=== PATIENT | female | born 1980 | race Caucasian/White ===

== ENCOUNTER 2019-03-03 20:46 | Emergency (ER) | payer MEDICAID, OTHER ==
[~2019-03-03 20:46] MED LIST: SUCCINYLCHOLINE CHLORIDE INJ 200 MG/10 ML VIAL ONE
--- NOTE | 2019-03-03 21:01 | ER Document Report ---
ED Medical Screen (RME) - General Chief Complaint: Foreign Body Stated Complaint: FOREIGN BODY IN THROAT Time Seen by Provider: 03/03/19 20:58 Mode of Arrival: Ambulatory Information source: Patient Notes: 38-year-old female presented to ED for complaint of choking on a piece of chicken. She states she cannot even swallow her spit. She is able to answer questions verbally. Respirations are regular and unlabored. 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 I have greeted and performed a rapid initial assessment of this patient. A comprehensive ED assessment and evaluation of the patient, analysis of test results and completion of medical decision making process will be conducted by an additional ED providers. - Related Data Allergies/Adverse Reactions: morphine Allergy (Verified 03/03/19 20:53) promethazine [From Phenergan] Allergy (Verified 03/03/19 20:53) Sulfa (Sulfonamide Antibiotics) Allergy (Verified 03/03/19 20:53) Physical Exam - Vital signs Vitals: Temp Pulse Resp BP Pulse Ox 98.0 F 93 21 H 145/85 H 100 03/03/19 20:54 03/03/19 20:54 03/03/19 20:54 03/03/19 20:54 03/03/19 20:54 Course - Vital Signs Vital signs: Temp Pulse Resp BP Pulse Ox 98.0 F 93 21 H 145/85 H 100 03/03/19 20:54 03/03/19 20:54 03/03/19 20:54 03/03/19 20:54 03/03/19 20:54
[2019-03-03] MEDS ORDERED: DEXAMETHASONE SOD PHOS INJ 10 MG/1 ML VIAL IV ONE (21:05)
[2019-03-03] MEDS ORDERED: KETOROLAC TROMETHAMINE INJ/PF 30 MG/1 ML SDV IV ONE (21:05)
[2019-03-03] MEDS ORDERED: NORMAL SALINE 1000 ML 1,000 ML IV ONE (21:51)
[2019-03-03] MEDS ORDERED: NITROGLYCERIN 0.4 MG/TAB 25 TAB/BOTTLE SL ONE (21:51)
--- NOTE | 2019-03-03 21:53 | ER Document Report ---
ED General - General Chief Complaint: Difficulty Swallowing Stated Complaint: FOREIGN BODY IN THROAT Time Seen by Provider: 03/03/19 20:58 Mode of Arrival: Ambulatory Notes: 38-year-old female with past medical history of Hylton's esophagus presents with foreign body in throat. Was eating chicken and felt like chicken got stuck approximately 1 hour prior to arrival. Patient is currently spitting up. Patient has had to have esophageal dilatation done twice in the past, most recent was 3 years ago. Patient has also had multiple endoscopies to remove foreign bodies from esophagus. - Related Data Allergies/Adverse Reactions: morphine Allergy (Verified 03/03/19 20:53) promethazine [From Phenergan] Allergy (Verified 03/03/19 20:53) Sulfa (Sulfonamide Antibiotics) Allergy (Verified 03/03/19 20:53) Past Medical History - General Information source: Patient - Social History Smoking Status: Never Smoker Family History: None Patient has suicidal ideation: No Patient has homicidal ideation: No Review of Systems - Review of Systems Notes: Constitutional: Negative for fever. HENT: Positive for dysphasia and foreign bodies sensation. Negative for sore throat. Eyes: Negative for visual changes. Cardiovascular: Negative for chest pain. Respiratory: Negative for shortness of breath. Gastrointestinal: Negative for abdominal pain, vomiting or diarrhea. Genitourinary: Negative for dysuria. Musculoskeletal: Negative for back pain. Skin: Negative for rash. Neurological: Negative for headaches, weakness or numbness. 10 point ROS negative except as marked above and in HPI. Physical Exam - Vital signs Vitals: Temp Pulse Resp BP Pulse Ox 98.0 F 93 21 H 145/85 H 100 03/03/19 20:54 03/03/19 20:54 03/03/19 20:54 03/03/19 20:54 03/03/19 20:54 - Notes Notes: GENERAL: Well-appearing, well-nourished, appears uncomfortable HEAD: Atraumatic, normocephalic. EYES: Extraocular movements intact, sclera anicteric, conjunctiva are normal. ENT: TMs normal, nares patent, oropharynx clear without exudates. Pt spitting up. Moist mucous membranes. NECK: Normal range of motion, supple without lymphadenopathy or JVD. No stridor. LUNGS: Breath sounds clear to auscultation bilaterally and equal. No wheezes rales or rhonchi. HEART: Regular rate and rhythm without murmurs, rubs or gallops. ABDOMEN: Soft, nontender, normoactive bowel sounds. No guarding, no rebound. No masses appreciated. EXTREMITIES: Normal range of motion, no pitting or edema. No clubbing or cyanosis. NEUROLOGICAL: Cranial nerves II through XII grossly intact. Normal speech, normal gait. PSYCH: Normal mood, normal affect. SKIN: Warm, Dry, normal turgor, no rashes or lesions noted. Course - Re-evaluation Re-evalutation: 03/03/19 21:[address] Mcdonald who recommended speaking with surgery. Spoke with surgeon, Dr. De Los Santos, who recommended nitroglycerin 0.4 mg SL and PO challenge in 10-15 minutes. States if no improved in 30 minutes to call him back. 03/03/19 21:55 Dr. Mcdonald assessed pt. States to give nitroglycerin 0.4 mg SL with IV fluids and zofran 4 mg IV prior to glucagon 1 mg IV. 03/03/19 22:20 Dr. De Los Santos at bedside to evaluate pt. 03/03/19 22:41 Dr. De Los Santos to take pt to OR for scope - Vital Signs Vital signs: Temp Pulse Resp BP Pulse Ox 98.0 F 93 21 H 145/85 H 100 03/03/19 20:54 03/03/19 20:54 03/03/19 20:54 03/03/19 20:54 03/03/19 20:54 Discharge - Discharge Clinical Impression: History of Hylton's esophagus Foreign body in throat Qualifiers: Encounter type: initial encounter Qualified Code(s): T17.208A - Unspecified foreign body in pharynx causing other injury, initial encounter Condition: Stable Disposition: ADMITTED INPATIENT Admitting Provider: Surgicalist - [facility] Admitted: OR
--- NOTE | 2019-03-03 21:53 | RADIOLOGY REPORT (SQ) ---
EXAM: XR NECK SOFT TISSUE CLINICAL INDICATION: 30-year-old female status post choking. Technologist note: Feels like food stuck above sternum. TECHNIQUE: Two-view, PA and lateral projections of the neck soft tissues were obtained. COMPARISON: None. FINDINGS: The prevertebral soft tissues are within normal limits. The airway is patent. There is gaseous distention of the visualized proximal esophagus, terminating off the [id number] of the examination. The possibility of distal obstruction cannot be excluded. Lungs are clear without focal opacity, pneumothorax or pleural effusions. The visualized bones are reveal grade 1 anterolisthesis of C4 relative to C5 of uncertain etiology. IMPRESSION: 1. There is gaseous distention of the visualized proximal esophagus, terminating off the [id number] of the examination. The possibility of distal obstruction cannot be excluded. 2. Grade 1 anterolisthesis of C4 relative to C5 uncertain etiology. There is otherwise straightening of the cervical spine.
[2019-03-03] MEDS ORDERED: ONDANSETRON HCL INJ/PF 4 MG/2 ML SDV IV ONE (21:55)
[2019-03-03] MEDS ORDERED: GLUCAGON,HUMAN RECOMB 1 MG INJ IV ONE (21:55)
--- NOTE | 2019-03-03 22:43 | PDOC H&P ---
History of Present Illness Patient complains of: Food bolus stuck in the upper esophagus with dysphagia History of Present Illness: DOC GEORGE is a 38 year old female with a history of severe GERD, Hylton's esophagus, endoscopic retrieval of impacted esophageal food bolus x3, and esophageal dilatation of stricture x2. The last endoscopic esophageal dilatation was done 3 years ago. The patient reports that she was having dinner and she ate a bite of food (chicken). Soon after. she felt that she was unable to swallow any additional food and she has been unable to handle her own secretions or drinking any fluids since then. She denies chest pain, she reports spitting up her own saliva, no blood identified. Social History Smoking Status: Never Smoker Family History Parental Family History Reviewed: No Children Family History Reviewed: No Sibling(s) Family History Reviewed.: No Medication/Allergy Allergies/Adverse Reactions: morphine Allergy (Verified 03/03/19 20:53) promethazine [From Phenergan] Allergy (Verified 03/03/19 20:53) Sulfa (Sulfonamide Antibiotics) Allergy (Verified 03/03/19 20:53) Physical Exam Vital Signs: Temp Pulse Resp BP Pulse Ox 98.0 F 93 21 H 145/85 H 100 03/03/19 20:54 03/03/19 20:54 03/03/19 20:54 03/03/19 20:54 03/03/19 20:54 Intake & Output 03/02/19 03/03/19 03/04/19 06:59 06:59 06:59 Weight 91.8 kg General appearance: PRESENT: mild distress, obese, well-developed, well- nourished, other - Spitting up her own saliva Head exam: PRESENT: atraumatic, normocephalic Eye exam: PRESENT: EOMI Mouth exam: PRESENT: moist, neck supple Neck exam: PRESENT: full ROM Respiratory exam: PRESENT: clear to auscultation rik Cardiovascular exam: PRESENT: RRR GI/Abdominal exam: PRESENT: normal bowel sounds, soft Rectal exam: PRESENT: deferred Extremities exam: PRESENT: full ROM Musculoskeletal exam: PRESENT: full ROM Neurological exam: PRESENT: alert, awake, oriented to person, oriented to place Psychiatric exam: PRESENT: anxious Skin exam: PRESENT: warm Results Impressions: Soft Tissue Neck X-Ray 03/03/19 21:04 IMPRESSION: 1. There is gaseous distention of the visualized proximal esophagus, terminating off the [id number]-[id number] of the examination. The possibility of distal obstruction cannot be excluded. 2. Grade 1 anterolisthesis of C4 relative to C5 uncertain etiology. There is otherwise straightening of the cervical spine. Assessment & Plan - Diagnosis (1) Food impaction of esophagus Qualifiers: Encounter type: initial encounter Qualified Code(s): T18.128A - Food in esophagus causing other injury, initial encounter Is this a current diagnosis for this admission?: Yes - Plan Summary Plan Summary: Assessment: Esophageal food impaction History of esophageal food impaction x3 which required endoscopic disimpaction History esophageal dilatation x3 (last time 3 years ago) No other significant medical history except for polycystic kidney disease Plan: Emergent esophageal endoscopic food disimpaction tonight Procedure, risks, complications, benefits, alternatives, have been explained to the patient, her questions were answered, and she has decided to proceed.
[2019-03-03] MEDS ORDERED: FENTANYL CITRATE INJ/PF 100 MCG/2 ML AMPUL ONE (23:14)
[2019-03-03] MEDS ORDERED: PROPOFOL INJ 200 MG/20 ML VIAL IV ONE (23:15)
[2019-03-03] MEDS ORDERED: ONDANSETRON HCL INJ/PF 4 MG/2 ML SDV ONE (23:15)
[2019-03-03] MEDS ORDERED: DIPHENHYDRAMINE HCL 50 MG/ML VIAL IV PRN (23:20)
[2019-03-03] MEDS ORDERED: MEPERIDINE HCL/PF INJ 25 MG/1 ML DISP.SYRIN IV PRN (23:20)
[2019-03-03] MEDS ORDERED: FENTANYL CITRATE INJ/PF 100 MCG/2 ML AMPUL IV PRN ×3 (23:20)
--- NOTE | 2019-03-04 00:02 | Operative Report ---
Nonrecallable Operative Report DATE OF SURGERY: 03/03/19 PREOPERATIVE DIAGNOSIS: Impacted esophageal food bolus. History of impacted esophageal bolus x3. History of esophageal stricture. History of esophageal dilatation x3 POSTOPERATIVE DIAGNOSIS: Small hiatal hernia otherwise normal upper gas troduodenoscopy OPERATION: Upper gastroduodenoscopy SURGEON: LAUREN HUMPHRIES ANESTHESIA: GA TISSUE REMOVED OR ALTERED: None COMPLICATIONS: None ESTIMATED BLOOD LOSS: Not applicable INTRAOPERATIVE FINDINGS: Small hiatal hernia, otherwise normal upper gastroduodenoscopy, no esophageal strictures identified no gastric pathology identified, no food impaction esophagus or food inside the stomach identified PROCEDURE: The procedure was done in surgery, general anesthesia was induced by the anesthesiologist, the patient was placed in a lateral decubitus on the surgical bed; the gastroscope was inserted into the mouth, esophagus, stomach, and first, portion of the duodenum. The preparation was good, no food was identified impacted in the esophagus, no esophageal strictures were identified, the GE junction was patent; the stomach was examined and no masses, polyps, strictures, mucosal changes, or ulcerations were noted. No food residue was noted inside the stomach as well. The first portion of the duodenum was normal. The scope was then retroflexed: the fundus and the GE junction appeared to be within the normal limits except for a very small hiatal hernia. The scope was slowly withdrawn into the esophagus which again appeared to be normal and removed from the patient mouth without difficulty. The patient tolerated procedure well, was extubated, and transferred to the recovery room in satisfactory conditions. Pain the patient was discharged to home afterward
[2019-03-04 00:40] VITALS: BP 118/75
== END 2019-03-04 01:22 | disposition left against medical advice (07) ==
LOC: ER 20:46 → EH 22:52 → UNDOADMIN 22:52 → EH 03-04 00:25
PROC: 0DJ08ZZ Inspection of Upper Intestinal Tract, Via Natural or Artificial Opening Endoscopic (ICD-10-PCS; principal; 2019-03-03 23:30)
DX: K44.9 Diaphragmatic hernia without obstruction or gangrene (principal); K22.70 Barrett's esophagus without dysplasia; R13.10 Dysphagia, unspecified; X58.XXXA Exposure to other specified factors, initial encounter
CPT/HCPCS: 70360; 43235; J3010; J1610; J1885; J3490; J0330; J2405; J7030; J2704; J1100; 731; 96374; 96375; 99283

== ENCOUNTER 2019-06-09 13:52 | Emergency (ER) | payer OTHER, MEDICAID ==
[2019-06-09 13:57] VITALS: BP 142/76
--- NOTE | 2019-06-09 14:12 | ER Document Report ---
HPI - HPI Time Seen by Provider: 06/09/19 14:02 Pain Level: 1 Notes: Patient is a 38-year-old female with no significant past medical history presents complaining of right anterior rib pain status post injury 2 days ago. 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 Patient states that she reaggravated the injury recently. Patient states that certain movements do make the pain worse. Patient has mostly presented for a work note. No other concerns or complaints at this time. Denies any headache, fever, neck pain, URI, sore throat, palpitations, syncope, cough, shortness of breath, wheeze, dyspnea, abdominal pain, nausea/vomiting/diarrhea, urinary retention, dysuria, hematuria, loss of control of bowel or bladder, numbness/tingling, saddle anesthesia, muscle paralysis/weakness, or rash. - ROS Systems Reviewed and Negative: Yes All other systems reviewed and negative - REPRODUCTIVE Reproductive: DENIES: : Past Medical History - Social History Smoking Status: Current Every Day Smoker Family History: None Patient has suicidal ideation: No Patient has homicidal ideation: No Vertical Provider Document - CONSTITUTIONAL Agree With Documented VS: Yes Notes: PHYSICAL EXAMINATION: GENERAL: Well-appearing, well-nourished and in no acute distress. HEAD: Atraumatic, normocephalic. EYES: Pupils equal round and reactive to light, extraocular movements intact, sclera anicteric, conjunctiva are normal. ENT: Nares patent and without discharge. oropharynx clear without exudates. No tonsilar hypertrophy or erythema. Moist mucous membranes. NECK: Normal range of motion, supple without lymphadenopathy Chest: + reproducible tenderness to palpation of the rt anterior rib area and reproducible with arm extension/abduction. LUNGS: Breath sounds clear to auscultation bilaterally and equal. No wheezes rales or rhonchi. HEART: Regular rate and rhythm without murmurs, rubs, gallops. ABDOMEN: Soft, nontender, nondistended abdomen. No guarding, no rebound. Normal bowel sounds present. No CVA tenderness bilaterally. Musculoskeletal: FROM to passive/active. Strength 5+/5. Nishi neg. No asymmetry to LE's. Extremities: No cyanosis, clubbing, or edema b/l. Peripheral pulses 2+. Capillary refill less than 3 seconds. NEUROLOGICAL: Normal speech, normal gait. PSYCH: Normal mood, normal affect. SKIN: Warm, Dry, normal turgor, no rashes or lesions noted. - INFECTION CONTROL TRAVEL OUTSIDE OF THE [place] IN LAST 30 DAYS: No Course - Re-evaluation Re-evalutation: 06/09/19 Patient is an afebrile, well-hydrated 38-year-old female who presents to the ED with chest wall pain, suspect costochondritis from mechanical injury. Vitals are acceptable without any significant tachycardia, tachypnea, or hypoxia. PE is otherwise unremarkable aside from the reproducible chest wall tenderness. Patient is nontoxic-appearing and is tolerating p.o. without any difficulties. Rib/chest x-ray unremarkable for any acute pathology. Patient is PERC negative. Patient does not have any dyspnea or shortness of breath. Patient's presentation and symptomatology creates low suspicion for ACS, PE, pneumothorax, pericarditis, dissection, respiratory compromise, severe dehydration, sepsis, meningitis, or other systemic emergent condition at this time. Patient is aware that this condition can change from initial presentation and she needs to monitor symptoms closely and seek medical attention for any acute changes. Recommend conservative measures for symptoms. Recheck with your PCM in 3-5 days. Consider consult with Ortho. Return to the ED with any worsening/concerning symptoms otherwise as reviewed in discharge. Patient is in agreement. - Vital Signs Vital signs: Temp Pulse Resp BP Pulse Ox 97.8 F 62 18 142/76 H 100 06/09/19 13:56 06/09/19 13:56 06/09/19 13:56 06/09/19 13:56 06/09/19 13:56 Discharge - Discharge Clinical Impression: Chest wall pain, Costochondritis Condition: Stable Disposition: HOME, SELF-CARE Instructions: Chest Wall Pain ([facility]), Costochondritis ([facility]) Additional Instructions: Rest, Ice, Compression, Elevation Tylenol/ibuprofen as needed Light stretches daily Strength exercises as able Moist heat and massage may help F/u with your PCP in 3-5 days for a recheck Consider consult(s) with Orthopedics/physical therapy for ongoing/worsening symptoms Return to the ED with any worsening symptoms and/or development of fever, headache, chest pain, palpitations, syncope, shortness of breath, trouble breathing, abdominal pain, n/v/d, muscle weakness/paralysis, numbness/tingling, swelling, redness, or other worsening symptoms that are concerning to you. Prescriptions: Ibuprofen [Motrin 800 mg Tablet] 800 mg PO Q8H PRN #15 tab PRN Reason: Forms: Elevated Blood Pressure, Return to Work Referrals: [facility] [Provider Group] - Follow up as needed
--- NOTE | 2019-06-09 14:32 | RADIOLOGY REPORT (SQ) ---
EXAM DESCRIPTION: RIBS RIGHT W/PA CHEST COMPLETED DATE/TIME: 06/09/2019 2:17 pm REASON FOR STUDY: rt anterior superior rib pain s/p injury COMPARISON: None. TECHNIQUE: Frontal view of the chest and additional views of the right ribs acquired. NUMBER OF VIEWS: Three views. LIMITATIONS: None. FINDINGS: FRONTAL CXR: The cardiomediastinal silhouette and pulmonary vasculature are within normal limits. There is no consolidation, pleural effusion or pneumothorax. RIBS: No displaced rib fracture. 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 IMPRESSION: No displaced rib fracture or acute cardiopulmonary process. COMMENT: SITE OF TRAUMA/COMPLAINT MARKED/STAMP COMPLETED: NO. TECHNICAL DOCUMENTATION: JOB ID: [id number] 2010 [employer]- All Rights Reserved Reading location - IP/workstation name: [email or web address]
== END 2019-06-09 14:51 | disposition home or self-care (01) ==
LOC: ER 13:52
DX: R07.81 Pleurodynia (principal); M94.0 Chondrocostal junction syndrome [Tietze]; X58.XXXA Exposure to other specified factors, initial encounter; Y93.F9 Activity, other caregiving; Y99.0 Civilian activity done for income or pay
CPT/HCPCS: 99283

== ENCOUNTER → 2019-12-05 | Outpatient (CLI) | payer MEDICAID | LOC: RAD 14:06 | PROVIDERS: ATTEND Nurse Practitioner Family | DX: N28.89 Other specified disorders of kidney and ureter (principal) | CPT/HCPCS: 74170; 82565 ==

== ENCOUNTER 2020-01-11 08:06 | Day surgery (SDC) | payer MEDICAID ==
[2020-01-08 11:09] LABS: APPEARANCE,URINE CLEAR; BILIRUBIN,URINE NEGATIVE (NEGATIVE); COLOR,URINE STRAW; GLUCOSE, URINE NEGATIVE (NEGATIVE); KETONES,URINE NEGATIVE (NEGATIVE); LEUKOCYTE ESTERASE,URINE NEGATIVE (NEGATIVE); NITRITE,URINE NEGATIVE (NEGATIVE); PROTEIN,URINE NEGATIVE (NEGATIVE); URINE SPECIFIC GRAVITY 1.008; UROBILINOGEN,URINE NEGATIVE mg/dL (<2.0)
[2020-01-08 11:16] LABS: HEMATOCRIT 41.5 % (36.0-47.0); HEMOGLOBIN 14.3 g/dL (12.0-15.5); MEAN CORPUSCULAR HEMOGLOBIN 30.5 pg (27.0-33.4); MEAN CORPUSCULAR HGB CONC 34.4 g/dL (32.0-36.0); MEAN CORPUSCULAR VOLUME 89 fl (80-97); PLATELET COUNT 232 10^3/uL (150-450); RED BLOOD COUNT 4.69 10^6/uL (3.72-5.28); RED CELL DISTRIBUTION WIDTH 12.7 % (11.5-14.0); WHITE BLOOD COUNT 6.6 10^3/uL (4.0-10.5)
[2020-01-08 11:31] LABS: ALBUMIN 4.4 g/dL (3.5-5.0); ALKALINE PHOSPHATASE 64 U/L (38-126); ANION GAP 11 (5-19); ASPARTATE AMINO TRANSFERASE 17 U/L (14-36); BILIRUBIN,DIRECT 0.3 mg/dL (0.0-0.4); BILIRUBIN,TOTAL 0.3 mg/dL (0.2-1.3); BLOOD UREA NITROGEN 9 mg/dL (7-20); CALCIUM 9.3 mg/dL (8.4-10.2); CARBON DIOXIDE 21 mmol/L (22-30); CHLORIDE 107 mmol/L (98-107); GLUCOSE 98 mg/dL (75-110); POTASSIUM 4.1 mmol/L (3.6-5.0); TOTAL PROTEIN 6.9 g/dL (6.3-8.2)
[~2020-01-11 08:06] MED LIST changes: +CEFAZOLIN 1 GM/D5W RTU 1 GM/50 ML RTUPB IV PRN; +LACTATED RINGERS 1000 ML IV PRN; +LIDOCAINE 0.5% INJ-PF (5 MG/ML) 50 ML SDV SUBCUT PRN; +RINGERS SOLUTION,LACTATED 1,000 ML IV PRN; -SUCCINYLCHOLINE CHLORIDE INJ 200 MG/10 ML VIAL ONE
[2020-01-11] MEDS ORDERED: CEFAZOLIN 1 GM/D5W RTU 1 GM/50 ML RTUPB IV ONE (09:23)
[2020-01-11] MEDS ORDERED: NEOSTIGMINE METHYLSULFATE 10 MG/10 ML VIAL ONE (10:40)
[2020-01-11] MEDS ORDERED: GLYCOPYRROLATE 1 MG/5 ML VIAL ONE (10:40)
[2020-01-11] MEDS ORDERED: LIDOCAINE 2% INJ-PF (20 MG/ML) 2 ML AMPUL ONE (10:40)
[2020-01-11] MEDS ORDERED: METOCLOPRAMIDE HCL INJ/PF 10 MG/2 ML SDV ONE (10:40)
[2020-01-11] MEDS ORDERED: ONDANSETRON HCL INJ/PF 4 MG/2 ML SDV ONE (10:40)
[2020-01-11] MEDS ORDERED: ALBUTEROL SULFATE HFA (90 MCG/PUFF) 8 GM MDI IH ONE (10:40)
[2020-01-11] MEDS ORDERED: DEXAMETHASONE SOD PHOSPHATE INJ 4 MG/1 ML VIAL ONE (10:40)
[2020-01-11] MEDS ORDERED: KETOROLAC TROMETHAMINE 60 MG/2 ML SDV ONE (10:40)
[2020-01-11] MEDS ORDERED: ROCURONIUM BROMIDE INJ 50 MG/5 ML VIAL IV ONE (10:40)
[2020-01-11] MEDS ORDERED: SCOPOLAMINE HYDROBROMIDE 1.5 MG PATCH.TD72 ONE (10:49)
[2020-01-11] MEDS ORDERED: KETAMINE HCL INJ 500 MG/10 ML VIAL ONE (11:30)
[2020-01-11] MEDS ORDERED: FENTANYL CITRATE INJ/PF 250 MCG/5 ML AMPULE ONE ×2 (11:31→11:32)
[2020-01-11] MEDS ORDERED: PROPOFOL INJ 200 MG/20 ML VIAL IV ONE (11:31)
[2020-01-11] MEDS ORDERED: MIDAZOLAM 2 MG/2 ML INJ ONE (11:31)
[2020-01-11] MEDS ORDERED: HYDROMORPHONE HCL INJ/PF 2 MG/ML AMPULE ONE ×2 (11:31→14:00)
[2020-01-11] MEDS ORDERED: DIPHENHYDRAMINE HCL 50 MG/ML VIAL IV PRN (13:25)
[2020-01-11] MEDS ORDERED: MEPERIDINE HCL/PF INJ 25 MG/1 ML DISP.SYRIN IV PRN (13:25)
[2020-01-11] MEDS ORDERED: FENTANYL CITRATE INJ/PF 100 MCG/2 ML AMPUL IV PRN ×3 (13:25)
[2020-01-11] MEDS ORDERED: HYDROMORPHONE HCL INJ/PF 2 MG/ML AMPULE IV PRN ×2 (13:26→13:27)
[2020-01-11] MEDS ORDERED: DIPH/PERTUSS(ACELL)/TETANUS VAC/PF 0.5 ML SYR (>=10YO) IM PRN (13:27)
[2020-01-11] MEDS ORDERED: OXYCODONE-ACETAMINOPHEN 5-325 MG TABLET PO PRN ×2 (13:27)
[2020-01-11] MEDS ORDERED: MEASLES,MUMPS&RUBELLA VACC/PF 0.5 ML VIAL SUBCUT PRN (13:27)
[2020-01-11] MEDS ORDERED: ACETAMINOPHEN 1,000 MG/100 ML RTUPB IV PRN (13:27)
[2020-01-11] MEDS ORDERED: ACETAMINOPHEN 325 MG TABLET PO PRN (13:27)
[2020-01-11] MEDS ORDERED: RINGERS SOLUTION,LACTATED 1,000 ML IV PRN (13:27)
[2020-01-11] MEDS ORDERED: SIMETHICONE 80 MG TAB.CHEW PO PRN (13:27)
[2020-01-11] MEDS ORDERED: ONDANSETRON HCL INJ/PF 4 MG/2 ML SDV IV PRN (13:31)
--- NOTE | 2020-01-11 13:36 | Operative Report ---
Operative Report DATE OF SURGERY: 01/11/20 PREOPERATIVE DIAGNOSIS: abnormal uterine bleeding, pelvic pain POSTOPERATIVE DIAGNOSIS: same OPERATION: robotic assisted total laparoscopic hysterectomy with bilateral salpingectomy and lysis of adhesions SURGEON: ANGELY MENDEZ [employer] SUPERVISOR: RODERICK VAUGHAN ANESTHESIA: GA TISSUE REMOVED OR ALTERED: Uterus cervix bilateral fallopian tubes COMPLICATIONS: None ESTIMATED BLOOD LOSS: 100 cc INTRAOPERATIVE FINDINGS: 8-week size uterus normal fallopian tubes and ovaries fallopian tubes had evidence of previous tubal ligation and adhesions of the bladder to the lower uterine segment PROCEDURE: Patient was taken to the operating room prepared and draped in normal sterile fashion in dorsolithotomy position. Under sterile conditions a Machuca catheter was placed to gravity. Speculum was placed into the vagina and the cervix was grasped on the anterior lip with a single-tooth tenaculum. The cervix was then dilated to accommodate a medium V care uterine manipulator. Manipulate it was placed gloves were changed and attention was turned to the upper portion of the case. A 2-1/2 cm umbilical skin incision was made 11 blade and this was carried through to the underlying layer of fascia with the same 11 blade. It was grasped to Lorena's acted with Mickey's. New cavity was entered bluntly. A GelPort was placed in a normal fashion the camera port and air seal in the appropriate locations. Alejandra was then inflated with approximately 2 L of CO2 gas. The camera was then introduced into the peritoneal cavity through the camera port and the patient was placed in steep Trendelenburg. The above findings were noted. Under direct visualization two 5 mm ports were placed approximately 10 cm on either side of the umbilicus. The robot was then docked with the vessel sealer placed on the patient's left and the monopolar scissors placed placed on the patient's right. I then unscrubbed and set at the robotic console beginning with the left adnexa fallopian tube was transected from the uterus using the vessel sealer and monopolar scissors as needed. The fallopian tube was then removed through the assistance port. The ovarian ligament was then transected using the vessel sealer. The uterine artery was skeletonized using blunt dissection and ligated using the vessel sealer down to the level of the external cervical os. The bladder flap was then begun using monopolar scissors and blunt dissection over the V care cup noted through the mucosa. Attention was then turned to the right adnexa where the fallopian tube was transected in a similar fashion. The utero-ovarian ligament was transected using the vessel sealer. The Uterine artery was then transected using the vessel sealer and skeletonized using blunt dissection. The vessel sealer was again used to completely transect the uterine artery down to the level of the external cervical os. The bladder flap was completed using similar sharp and blunt dissection of the prominent adhesions to the lower uterine segment . once the bladder was felt to be adequately away from the lower uterine segment, the colpotomy was begun on the anterior aspect of the cervix following the outline of the V care cup mucosa. The cup was followed in a circumferential fashion completely around the cervix estimate was completely freed. The specimen was then removed through the vaginal defect. The instruments were then changed to a Oumar needle tilt tray driver and pro-grasp. AV lock needle was introduced through the assistance port. The lock needle was used to close the vaginal cuff and hemostasis. The needle was then removed through the assistance port. The peritoneal cavity was carefully inspected the ureters were noted to both be peristalsing and there was no signs of hydroureter. The robot was then undocked. The fascia was closed at the umbilical skin incision seen 0 Vicryl 3 skin incisions were closed using 4-0 Vicryl. Sponge lap and needle counts were correct x2 and the patient was taken to recovery in stable condition.
[2020-01-11] MEDS: KETOROLAC TROMETHAMINE INJ/PF 30 MG/1 ML SDV IV SCH ×2 (15:14→21:38)
[2020-01-11] MEDS ORDERED: DOCUSATE SODIUM 100 MG CAPSULE PO SCH (18:00)
[2020-01-12] MEDS: KETOROLAC TROMETHAMINE INJ/PF 30 MG/1 ML SDV IV SCH (05:15)
[2020-01-12 07:33] LABS: HEMATOCRIT 36.3 % (36.0-47.0); HEMOGLOBIN 12.4 g/dL (12.0-15.5); MEAN CORPUSCULAR HEMOGLOBIN 30.6 pg (27.0-33.4); MEAN CORPUSCULAR HGB CONC 34.2 g/dL (32.0-36.0); MEAN CORPUSCULAR VOLUME 90 fl (80-97); PLATELET COUNT 219 10^3/uL (150-450); RED BLOOD COUNT 4.05 10^6/uL (3.72-5.28); RED CELL DISTRIBUTION WIDTH 12.7 % (11.5-14.0); WHITE BLOOD COUNT 15.5 10^3/uL (4.0-10.5)
--- NOTE | 2020-01-12 07:46 | PDOC DISCHARGE SUMMARY ---
Impression - Admit/DC Date/PCP Admission Date/Primary Care Provider: JOSEY SHEPHERD Discharge Date: 01/12/20 - Discharge Diagnosis (1) Abnormal uterine bleeding Is this a current diagnosis for this admission?: Yes (2) Pelvic pain Is this a current diagnosis for this admission?: Yes - Assessment Summary: underwent RATLH w/ bilateral salpingectomy yesterday without complications. unremarkable post operative course. voiding well. passing flatus. - Additional Information Resuscitation Status: Full Code Discharge Diet: As Tolerated Discharge Activity: Balance Activity w/Rest, No Lifting Over 10 Pounds, No Lifting/Push/Pulling, Pelvic Rest, No tub bath, Walk Frequently Referrals: ANGELY MENDEZ MD [ACTIVE STAFF] - 01/26/20 8:30 am (CALL THE OFFICE FOR ANY QUESTIONS AND CONCERNS.) MAGDI GU FNP [Primary Care Provider] - Prescriptions: Oxycodone HCl/Acetaminophen [Percocet 5-325 mg Tablet] 1 tab PO Q4HP PRN #30 tablet PRN Reason: Docusate Sodium [Colace 100 mg Capsule] 100 mg PO BID #60 capsule Ibuprofen [Motrin 800 mg Tablet] 800 mg PO Q8H #60 tablet Home Medications: Docusate Sodium [Colace 100 mg Capsule] 100 mg PO BID #60 capsule 01/12/20 Ibuprofen [Motrin 800 mg Tablet] 800 mg PO Q8H #60 tablet 01/12/20 Oxycodone HCl/Acetaminophen [Percocet 5-325 mg Tablet] 1 tab PO Q4HP PRN #30 tablet 01/12/20 History of Present Illiness History of Present Illness: DOC WEISS is a 39 year old female Physical Exam - Physical Exam Vital Signs: Temp Pulse Resp BP Pulse Ox 97.9 F 62 16 99/55 L 99 01/12/20 04:00 01/12/20 04:00 01/12/20 04:00 01/12/20 04:00 01/12/20 04:00 Intake & Output 01/11/20 01/12/20 01/13/20 06:59 06:59 06:59 Intake Total 2840 Output Total 550 Balance 2290 Weight 92.8 kg Results Laboratory Results: WBC 6.6 10^3/uL (4.0-10.5) 01/08/20 10:24 RBC 4.69 10^6/uL (3.72-5.28) 01/08/20 10:24 Hgb 14.3 g/dL (12.0-15.5) 01/08/20 10:24 Hct 41.5 % (36.0-47.0) 01/08/20 10:24 MCV 89 fl (80-97) 01/08/20 10:24 MCH 30.5 pg (27.0-33.4) 01/08/20 10:24 MCHC 34.4 g/dL (32.0-36.0) 01/08/20 10:24 RDW 12.7 % (11.5-14.0) 01/08/20 10:24 Plt Count 232 10^3/uL (150-450) 01/08/20 10:24 Sodium 139.1 mmol/L (137-145) 01/08/20 10:24 Potassium 4.1 mmol/L (3.6-5.0) 01/08/20 10:24 Chloride 107 mmol/L (98-107) 01/08/20 10:24 Carbon Dioxide 21 mmol/L (22-30) L 01/08/20 10:24 Anion Gap 11 (5-19) 01/08/20 10:24 BUN 9 mg/dL (7-20) 01/08/20 10:24 Creatinine 0.78 mg/dL (0.52-1.25) 01/08/20 10:24 Est GFR ( Amer) > 60 (>60) 01/08/20 10:24 Est GFR (MDRD) Non-Af > 60 (>60) 01/08/20 10:24 Glucose 98 mg/dL (75-110) 01/08/20 10:24 Calcium 9.3 mg/dL (8.4-10.2) 01/08/20 10:24 Total Bilirubin 0.3 mg/dL (0.2-1.3) 01/08/20 10:24 Direct Bilirubin 0.3 mg/dL (0.0-0.4) 01/08/20 10:24 Neonat Total Bilirubin Not Reportable 01/08/20 10:24 Neonat Direct Bilirubin Not Reportable 01/08/20 10:24 Neonat Indirect Bili Not Reportable 01/08/20 10:24 AST 17 U/L (14-36) 01/08/20 10:24 ALT 14 U/L (<35) 01/08/20 10:24 Alkaline Phosphatase 64 U/L (38-126) 01/08/20 10:24 Total Protein 6.9 g/dL (6.3-8.2) 01/08/20 10:24 Albumin 4.4 g/dL (3.5-5.0) 01/08/20 10:24 Urine Color Cancelled 01/11/20 10:45 Urine Appearance Cancelled 01/11/20 10:45 Urine pH Cancelled 01/11/20 10:45 Ur Specific [place] Cancelled 01/11/20 10:45 Urine Protein Cancelled 01/11/20 10:45 Urine Glucose (UA) Cancelled 01/11/20 10:45 Urine Ketones Cancelled 01/11/20 10:45 Urine Blood Cancelled 01/11/20 10:45 Urine Nitrite Cancelled 01/11/20 10:45 Urine Bilirubin Cancelled 01/11/20 10:45 Urine Urobilinogen Cancelled 01/11/20 10:45 Ur Leukocyte Esterase Cancelled 01/11/20 10:45 Urine WBC (Auto) Cancelled 01/11/20 10:45 Urine RBC (Auto) Cancelled 01/11/20 10:45 U Hyaline Cast (Auto) Cancelled 01/11/20 10:45 Urine Bacteria (Auto) Cancelled 01/11/20 10:45 Urine Red Cell Clumps Cancelled 01/11/20 10:45 Urine WBC Clumps Cancelled 01/11/20 10:45 Squamous Epi Cells Auto Cancelled 01/11/20 10:45 U Non-Squamous Epis Auto Cancelled 01/11/20 10:45 Calcium Carbonate Cryst Cancelled 01/11/20 10:45 Calcium Phosphate Cryst Cancelled 01/11/20 10:45 Calcium Oxalate Cr Auto Cancelled 01/11/20 10:45 Leucine Crystals Cancelled 01/11/20 10:45 Cystine Crystals Cancelled 01/11/20 10:45 Uric Acid Cryst (Auto) Cancelled 01/11/20 10:45 Triple Phos Cryst (Auto) Cancelled 01/11/20 10:45 Tyrosine Crystals Cancelled 01/11/20 10:45 Amorphous Sediment Auto Cancelled 01/11/20 10:45 Cellular Casts Cancelled 01/11/20 10:45 Epithelial Casts (Auto) Cancelled 01/11/20 10:45 Fatty Casts Cancelled 01/11/20 10:45 Granular Casts (Auto) Cancelled 01/11/20 10:45 Waxy Casts (Auto) Cancelled 01/11/20 10:45 Broad Casts Cancelled 01/11/20 10:45 RBC Casts (Auto) Cancelled 01/11/20 10:45 WBC Casts (Auto) Cancelled 01/11/20 10:45 Urine Mucus (Auto) Cancelled 01/11/20 10:45 U Trichomonas (Auto) Cancelled 01/11/20 10:45 Ur Yeast w Hyphae Cancelled 01/11/20 10:45 Urine Yeast (Budding) Cancelled 01/11/20 10:45 Urine Ascorbic Acid Cancelled 01/11/20 10:45 Urine HCG, Qual NEGATIVE (NEGATIVE) 01/11/20 10:45 COVID-19 Source NASOPHARYNGEAL 01/08/20 10:30 COVID-19 (JO-ANN) NOT DETECTED 01/08/20 10:30 Blood Type O POSITIVE 01/08/20 10:24 Antibody Screen NEGATIVE 01/08/20 10:24 Stroke Is this a Stroke Patient?: No Acute Heart Failure Is this a Heart Failure Patient?: No
[2020-01-12 08:18] VITALS: BP 98/62
[2020-01-12] MEDS ORDERED: IBUPROFEN 800 MG TABLET PO SCH (12:00)
== END 2020-01-12 09:12 | disposition home or self-care (01) ==
LOC: OROUT 08:06 → 2N 15:00 → OROUT 01-12 09:12
PROVIDERS: ATTEND Obstetrics & Gynecology
DX: N93.9 Abnormal uterine and vaginal bleeding, unspecified (principal); R10.2 Pelvic and perineal pain; N87.0 Mild cervical dysplasia; N80.0 Endometriosis of uterus; N88.8 Other specified noninflammatory disorders of cervix uteri; Z03.818 Encounter for observation for suspected exposure to other biological agents ruled out; Z87.891 Personal history of nicotine dependence; Z98.51 Tubal ligation status
CPT/HCPCS: 86900; 86901; 36415 ×2; 86850; 85027 ×2; 87635; 81025; 80053; 81001; 88307 ×2; 94799; 00840; 58571; C1758; A4649; J2250; J0690; J3490 ×6; J1100; J1885 ×3; J3010; J2765; J2710; J1170; J2405; J7120; J2704; C9803; 840